=== PATIENT | male | born 1995 | race Two or more races ===

== ENCOUNTER 2022-07-20 21:18 | Emergency (ER) | payer OTHER ==
[~2022-07-20] VITALS: Ht 180.3 cm; Wt 86.2 kg
[2022-07-21] MEDS ORDERED: CIPRO500 MG PO (00:48)
== END 2022-07-21 01:04 | disposition home or self-care (01) ==
LOC: ER 21:18
DX: R10.32 Left lower quadrant pain (principal); R10.9 Unspecified abdominal pain